=== PATIENT | male | born 1960 | race Caucasian/White ===

== ENCOUNTER → 2016-03-19 | Outpatient (CLI) | payer BC, OTHER ==
[~2016-03-19] VITALS: Ht 172.7 cm; Wt 74.8 kg
[~2016-03-19] MED LIST: BENICAR20 MG PO; CELEBREX 200 M200 MG PO; COZAAR 50 MG TA50 M2 PO; CRESTOR10 MG PO; CYMBALTA60 MG PO; LYRICA 50 MG50 MG PO; MEDROLDOSEPACK PO; MOBIC15 MG PO; NEURONTIN600 MG PO; OXYCODONE-ACET1 EAC2 PO; OXYCODONE-APAP1 EAC6 PO; PERCOCET 10-321 EACH PO; PERCOCET 7.5-31 EACH PO; REMERON15 MG PO; REMERON30 MG PO; TRILEPTAL150 MG PO; ZANAFLEX4 M1 PO
--- NOTE | ~2016-03-19 | HPC ---
[facility] [place] [address] PAIN MANAGEMENT CONSULTATION Name: MICHAEL MILTON Room #: [facility] [id number] Admission: 03/19/16 Attend Phys: Narcisa Quesada MD Discharge: Date of : 60 Report #: [id number] THIS REPORT FOR: //name// CC: [facility] physician/PCP Alex Quesada DATE OF SERVICE: 03/19/2016 FOLLOWUP COMPLAINT: Here for medications and I have been doing pretty good. FOLLOWUP HISTORY: The patient is a 56-year-old gentleman who has been followed in the pain clinic because of chronic cervical pain and radiculopathy. As you recall from his history of somewhat complicated history, he has undergone surgery in the past because of neck instability. Overall, he feels that things are going reasonably well with his current medical regimen. He continues to have some pain and discomfort in his left shoulder, left neck and upper arm. He notes there are some trigger points there that have been helped with injections in the past and may consider an injection in the future. Overall, he is here for his medication renewal. 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 He does not find any encumbrance in his ability to perform his job from use of the opioid medications for pain relief. He would like to have his medications renewed. PHYSICAL EXAMINATION: Blood pressure is 138/84, pulse is 68, respiratory rate 16, room air saturation is 98. The patient rates his pain overall as a 2. It involves his left shoulder, neck, upper arm, described as constant, dull pain and notes some exacerbation of his discomfort when he is exerting himself physically lifting, using his arm, some bending activities. Heat and TENS units treatment can be helpful. IMPRESSION: 1. Cervical radiculopathy status post surgery with pain in the left shoulder, neck, and upper arm treated with opioid therapy. 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 2. Myofascial pain, trigger point in the left shoulder. This area has improved in the past with trigger point injection and the patient may consider an injection at the next visit. RECOMMENDATIONS: We will continue with his current medical regimen of oxycodone 7.5 mg 1 p.o. 5 times per day and meloxicam 15 mg 1 p.o. q. day, gabapentin 600 mg t.i.d. The patient will call us if he has any problems with his medications. [address] [address] PAIN MANAGEMENT CONSULTATION Name: MICHAEL MILTON Room #: REG CLJean ReyesRubénPhucRubén#: [id number] Admission: 03/19/16 Attend Phys: Narcisa Quesada MD Discharge: Date of : 60 Report #: [id number] We would like to thank you for letting us participate in his care. He will continue with Mobic 15 mg 1 p.o. q. day. <ELECTRONICALLY SIGNED> By: Narcisa Quesada MD 04/01/16 1018 [id number] Narcisa Quesada MD /nt
[2016-03-19 12:35] VITALS: BP 138/84
== END | disposition home or self-care (01) ==
LOC: PAIN 07:17
DX: M54.12 Radiculopathy, cervical region (principal); M79.1 Myalgia; G89.29 Other chronic pain; Z98.890 Other specified postprocedural states

== ENCOUNTER → 2016-06-04 | Outpatient (CLI) | payer BC, OTHER ==
[~2016-06-04] VITALS: Ht 172.7 cm; Wt 75.8 kg
--- NOTE | ~2016-06-04 | HPC ---
[facility] [address] [place] [address] PAIN MANAGEMENT CONSULTATION Name: KARINEMICHAEL Remy Room #: REG [facility] Mele#: [id number] Admission: 06/04/16 Attend Phys: Narcisa Quesada MD Discharge: Date of : 60 Report #: [id number] THIS REPORT FOR: //name// CC: Alex Quesada FOLLOWUP COMPLAINT: Here for medication renewal. FOLLOWUP HISTORY: The patient is a 56-year-old gentleman who has been followed in the pain clinic because of cervical radiculopathy. As you recall, he has undergone surgeries for increasing the stability in his neck. Overall, he feels that things are going reasonably well. He rates his pain as a 2/10 at this juncture. He continues to have some pain in the left neck with left shoulder pain as well as left upper arm discomfort. He feels that physical therapy exercises, which involved lifting and use his arm as well as some bending exercise can exacerbate his discomfort. He notes that heat, TENS, and his medications are beneficial. He is taking his medications as prescribed. He has had no problems with the medications. He has had no problems with his judgment or mentation. PHYSICAL EXAMINATION: Blood pressure is 146/82, pulse 78, respiratory rate 16, and room air saturation is about 99%. IMPRESSION: 1. Cervical radiculopathy status post neck stabilization surgeries-improved with his current opioid therapy. No impact on his ability to perform surgeries. 2. Myofascial pain, has trigger points in his left shoulder. This is stable today. RECOMMENDATION: We will continue his current medical regimen of oxycodone 7.5 mg 1 p.o. 5 times per day and Meloxicam 15 mg 1 p.o. daily, gabapentin 600 mg t.i.d. The patient will follow up in the pain clinic if he has any concerns regarding his medications. We would like to thank you for letting us participate in his care. We hope he continues to improve. By: [id number] Narcisa Quesada MD /leoncio
[2016-06-04 10:28] VITALS: BP 146/82
== END | disposition home or self-care (01) ==
LOC: PAIN 07:06
DX: M54.12 Radiculopathy, cervical region (principal); M25.512 Pain in left shoulder; M79.1 Myalgia

== ENCOUNTER → 2016-08-22 | Outpatient (CLI) | payer BC, OTHER ==
[~2016-08-22] VITALS: Ht 172.7 cm; Wt 75.9 kg
[2016-08-22 12:32] VITALS: BP 138/92
== END ==
LOC: PAIN 06:53
DX: M79.1 Myalgia (principal)

== ENCOUNTER → 2016-11-05 | Outpatient (CLI) | payer BC, OTHER ==
[~2016-11-05] VITALS: Ht 172.7 cm; Wt 75.8 kg
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
[2016-11-05 10:51] VITALS: BP 134/96
== END ==
LOC: PAIN 07:06
DX: M79.1 Myalgia (principal); M54.12 Radiculopathy, cervical region; I10 Essential (primary) hypertension

== ENCOUNTER → 2017-01-28 | Outpatient (CLI) | payer BC, OTHER ==
[~2017-01-28] VITALS: Ht 172.7 cm; Wt 75.4 kg
[~2017-01-28] MED LIST changes: +TRAZODONE HCL50 MG PO
--- NOTE | ~2017-01-28 | HPC ---
[facility] [address] [place] [address] PAIN MANAGEMENT CONSULTATION Name: KARINEMICHAEL Room #: REG [facility]LESRub[facility].#: [id number] Admission: 01/28/17 Attend Phys: Narcisa Quesada MD Discharge: Date of : 60 Report #: [id number] THIS REPORT FOR: //name// CC: Alex Quesada DATE OF SERVICE: 01/28/2017 FOLLOWUP COMPLAINT: Things are going a little bit better. FOLLOWUP HISTORY: The patient is a 56-year-old gentleman who has been followed in the pain clinic because of cervical radiculopathy and myofascial pain involving his arms. At this juncture, he is rating his pain as a 2. He continues to have pain in the left neck, left shoulder and in his arms. He notes that the numbness and tingling have improved. His medications continued to be helpful. After the last trigger point injection, he noted a number of days where things were quite improved. At this juncture, he has noted some return of the trigger point in the left trapezius area, would like to undergo another trigger point injection. PHYSICAL EXAMINATION: Blood pressure is 122/77, pulse 74, respiratory rate 16, room air saturations 100, height 5 feet 8 inches, weight 166 pounds, BMI is 25. The patient continues to have pain and discomfort with limited range of motion in his neck, pain and discomfort in the left shoulder, upper arm and notes some low back pain. IMPRESSION: 1. Cervical radiculopathy, status post surgical fusion and instrumentation. 2. Myofascial pain with lumbar pain in the low back area, L1 paraspinous muscle area. 3. Hypertension. RECOMMENDATIONS: We will continue with his current medical regimen of oxycodone 7.5/325 one p.o. q.4-6h. p.r.n. as well as Mobic 7.5 mg 1 daily. He will call us if he has any problems with his medications. We will proceed with a trigger point injection. PROCEDURE NOTE: The patient was placed in the sitting position. The left trapezius area was sterilely prepped with a chlorhexidine solution. A 25-gauge needle was then advanced into the trigger point in the trapezius muscle. This reproduced his discomfort. A total of 10 mL of 0.5% bupivacaine and 40 mg triamcinolone was injected. The patient tolerated the procedure well. There were no complications. His pain level was rated as a 2 at the time of [address] [address] PAIN MANAGEMENT CONSULTATION Name: MICHAEL MILTON Remy [facility] [id number] Admission: 01/28/17 Attend Phys: Narcisa Quesada MD Discharge: Date of : 60 Report #: [id number] discharge. He will follow up in the future as needed. We would like to thank you for letting us participate in his care. We hope he continues to improve. By: [id number] Narcisa Quesada MD /ISAURO
[2017-01-28 11:20] VITALS: BP 122/77
== END | disposition home or self-care (01) ==
LOC: PAIN 07:06
DX: M79.1 Myalgia (principal); M54.5 Low back pain; M54.12 Radiculopathy, cervical region; I10 Essential (primary) hypertension; Z98.890 Other specified postprocedural states; Z79.891 Long term (current) use of opiate analgesic; Z79.899 Other long term (current) drug therapy

== ENCOUNTER → 2017-04-08 | Outpatient (CLI) | payer BC, OTHER ==
[~2017-04-08] VITALS: Ht 172.7 cm; Wt 73.4 kg
[~2017-04-08] MED LIST changes: +IBUPROFEN 200200 M1 PO
--- NOTE | ~2017-04-08 | HPC ---
[facility] [address] [address] PAIN MANAGEMENT CONSULTATION Name: MILTONMICHAEL Room #: REG Jean Shabazz#: [id number] Admission: 04/08/17 Attend Phys: Narcisa Quesada MD Discharge: Date of : 60 Report #: [id number] THIS REPORT FOR: //name// CC: Alex Quesada DATE OF SERVICE: 04/08/2017 FOLLOWUP COMPLAINT: "I am still having some pain and may have to have some surgery in the future." FOLLOWUP HISTORY: The patient is a 57-year-old gentleman, who has been followed in the pain clinic because of chronic cervical radicular pain. As you recall, he has had significant problems with his neck. He has undergone surgeries in this area. Overall, things have gone reasonably well. He still has some pain and discomfort, which continues to be problematic down his arm. Note some numbness and some weakness. Still is able to perform his job without significant problems. He finds that his medications at this juncture are helpful. He has had some myofascial pain in the past which is improved with trigger point injections in the shoulders. At this juncture, he continues to have some pain in the outer aspects of his arm and forearm as well as some into his last two fingers. He has not been taking gabapentin. He is not sure this medication was very, cannot remember how effective this medication was, but feels that another trial of it might be helpful. We described the benefits of Gralise, which is a longer acting medication, similar to gabapentin with less side effects. At this juncture, he feels like he would like to give it a try. ALLERGIES: No known drug allergies. MEDICATIONS: Current medications include: Oxycodone 7.5 mg 1 p.o. p.r.n., Meloxicam 15 mg b.i.d., trazodone 50 mg 1 to 2 tablets at bedtime p.r.n., tizanidine 4 mg b.i.d., Crestor 10 mg, Cozaar 50 mg. PAIN CLINIC ASSESSMENT: 1. History of arthritis in the neck with status post surgeries. 2. Height 5 feet 8 inches, weight 161 pounds, BMI is 24. 3. Pain intensity 05/02. 4. Fall risk. The patient has not fallen in the last 3 months. He is not a fall risk. 5. The patient is not on blood thinners. 6. History of hypertension. The patient is being treated for hypertension. 7. Opioid therapy, greater than 6 weeks. The patient is on an opioid therapy and has signed a contract with the pain clinic. 8. Risk assessment tool. 9. Functional assessment tool. [address] [address] PAIN MANAGEMENT CONSULTATION Name: MILTONMICHAEL Room #: REG CL Mele#: [id number] Admission: 04/08/17 Attend Phys: Narcisa Quesada MD Discharge: Date of : 60 Report #: [id number] 10. Recreational drugs. The patient denies use of recreational drugs. 11. Tobacco: The patient does not smoke. 12. The patient does not use alcohol on a regular basis. PHYSICAL EXAM: GENERAL: The patient is a well-developed white male, appears his stated age. Orientation, the patient is alert and oriented x 3. Affect appears appropriate. HEENT: Atraumatic, normocephalic. Extraocular muscles are intact. Buccal membranes moist. No complaints of sinus problems. NECK: The patient has some limitations of movement in his neck secondary to surgeries. Has a scar in the posterior portion of his neck down to the area of approximately T1. LUNGS: Clear to auscultation. HEART: Regular rate. ABDOMEN: Nontender. IMPRESSION: 1. Cervical radiculopathy, status post surgical fusion with instrumentation. 2. Myofascial pain in the cervical area as well as some lumbar pain in L1 paraspinous muscle area. 3. Hypertension. RECOMMENDATIONS: We discussed treatment options with the patient. We will continue with his current medication of oxycodone 7.5 mg 1 p.o. q.4-6h. p.r.n. He will also continue with Mobic 7.5 mg daily. We will try release. A trial package of this medication has been prescribed. He has been given directions on how to take it. He will call us if he has any problems with his medications. We would like to thank you for letting us participate in his care. We hope he continues to improve. <ELECTRONICALLY SIGNED> By: Narcisa Quesada MD 05/06/17 1429 [id number] Narcisa Quesada MD /ISAURO
[2017-04-08 09:58] VITALS: BP 115/72
== END ==
LOC: PAIN 06:44
DX: M54.12 Radiculopathy, cervical region (principal); M54.5 Low back pain; I10 Essential (primary) hypertension

== ENCOUNTER → 2017-08-28 | Outpatient (CLI) | payer BC, OTHER ==
[~2017-08-28] VITALS: Ht 172.7 cm; Wt 71.7 kg
[~2017-08-28] MED LIST changes: -IBUPROFEN 200200 M1 PO
--- NOTE | ~2017-08-28 | HPC ---
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 As you recall, he has some significant problems with his cervical area. He has undergone surgery. He has been using a number of medications to help control his pain. Things have been going reasonably well. At this juncture, he has noted some worsening of pain and discomfort in his low back area. This is superseded that which he has been experiencing in his neck and in the shoulder. He states that he has been found to have a pars defect in his lower back area. At this juncture, he has no desire to undergo surgery for that problem. Feels his medications are working reasonably well. He did go fishing. He stepped off a rock. The raw was slippery. He did tear part of his quadriceps muscle on the right. He feels that his medications are working reasonably well and would like to continue with those medications today. He has returned for renewal. States that he is not having significant bowel or bladder dysfunction because of medications. He is not having any mental cloudiness. His sensorium is clear, thinking is clear. He is able to perform his job without any interference from use of his pain medications. ALLERGIES: No known drug allergies. CURRENT MEDICATIONS: Oxycodone 7.5 mg 1 p.o. p.r.n., Meloxicam 15 mg b.i.d., trazodone 50 mg 1-2 tablets at bedtime, tizanidine 4 mg b.i.d., Crestor 10 mg, Cozaar 50 mg (medications used in the past have included Neurontin. The patient would like to resume this medication. PAIN CLINIC ASSESSMENT: 1. 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 The patient has some pars defect in his low back at this juncture with increased back pain and discomfort. 2. Height is 5 feet 8 inches, weight 158 pounds, BMI is 24. 3. Vital Signs: Blood pressure 139/87, pulse 78, respiratory rate 14, room air saturation 98%. 4. Pain intensity 05/02. 5. Fall risk. The patient has not fallen in the last 3 months. He did slip on a wet slippery rock when going fishing recently. 6. Blood thinner. The patient is on [place] [address] PAIN MANAGEMENT CONSULTATION Name: KARINEMICHAEL Room #: REG [facility]#: [id number] Admission: 08/28/17 Attend Phys: Narcisa Quesada MD Discharge: Date of : 60 Report #: [id number] 7. History of hypertension. The patient is being treated for hypertension. 8. Opioid therapy greater than 6 weeks. The patient is receiving opioid medication from one source, the pain clinic. 9. Risk assessment tool, low risk without use of opioid medication. 10. Functional assessment tool. 11. Recreational drug use. The patient denies use of recreational drugs. 12. Tobacco: The patient has never smoked. 13. Alcohol. The patient drinks alcoholic beverages occasionally. PHYSICAL EXAMINATION: GENERAL: The patient is well-developed, well-nourished white male, appears his stated age. He is alert and oriented x 3. His affect is appropriate. Speech is fluent. HEENT: Normocephalic, atraumatic. Extraocular eye muscles intact. Sclerae nonicteric. Mucous membranes are moist. NECK: With limitation secondary to surgeries. Well-healed scars in the anterior and posterior portion of his neck. LUNGS: Clear to auscultation. HEART: Regular rate. S1, S2. ABDOMEN: Nontender. EXTREMITIES: Lower extremity, the patient has pain and discomfort in his back. Upper muscle strength is judged to be 5/5 for the major muscle groups in the upper extremity. Lower muscle strength is judged to be 5/5 for the major muscle groups in the lower extremity. The patient has a significant bruise/tear in the area of the right quadriceps muscle. It is approximately an 8 inches along with color changes consistent with an old bruise underneath the skin. IMPRESSION: 1. Cervical radiculopathy, status post fusion with instrumentation. 2. 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 3. Myofascial pain in the cervical area as well. 4. Hypertension. RECOMMENDATIONS: We discussed treatment options with the patient. He felt that the use of gabapentin may have been more effective than he thought. At this juncture, he would like to resume use of gabapentin to help with his medication. He was given Gralise. He did not feel that the slow release medication of gabapentin was significantly helpful. He would like to continue with his current medications. He may consider treatment of injections or other modalities to help with the pars defect in his lower back in the future. A script for all of his medications have been released. He will follow up in the [facility] [address] [place] [address] PAIN MANAGEMENT CONSULTATION Name: MICHAEL MILTON Room #: REG NINO Shabazz#: [id number] Admission: 08/28/17 Attend Phys: Narcisa Quesada MD Discharge: Date of : 60 Report #: [id number] future as needed. We would like to thank you for letting us participate in his care. We hope he continues to improve. By: [id number] Narcisa Quesada MD /ISAURO
[2017-08-28 10:53] VITALS: BP 139/87
== END ==
LOC: PAIN 06:56
DX: M54.12 Radiculopathy, cervical region (principal); I10 Essential (primary) hypertension

== ENCOUNTER → 2018-01-13 | Outpatient (CLI) | payer BC, OTHER ==
[~2018-01-13] VITALS: Ht 172.7 cm; Wt 73.9 kg
[~2018-01-13] MED LIST changes: +IBUPROFEN 200200 M1 PO
[2018-01-13 12:35] VITALS: BP 152/101
== END ==
LOC: PAIN 06:37
DX: M54.2 Cervicalgia (principal); M25.512 Pain in left shoulder; M54.5 Low back pain; M79.642 Pain in left hand; M79.641 Pain in right hand; G89.29 Other chronic pain; Z79.891 Long term (current) use of opiate analgesic

== ENCOUNTER → 2018-03-19 | Outpatient (CLI) | payer BC, OTHER ==
[~2018-03-19] VITALS: Ht 172.7 cm; Wt 75.1 kg
--- NOTE | ~2018-03-19 | HPC ---
[facility] [place] [address] PAIN MANAGEMENT CONSULTATION Name: MILTONMICHAEL Room #: REG [facility] Mele#: [id number] Admission: 03/19/18 Attend Phys: Narcisa Quesada MD Discharge: Date of : 60 Report #: [id number] THIS REPORT FOR: //name// CC: Alex Quesada DATE OF SERVICE: 03/19/2018 CHIEF COMPLAINT: "I got some improvement in the back after the last injection, I would like to try another one today." FOLLOWUP HISTORY: The patient is a 58-year-old gentleman who has been followed in the pain clinic because of chronic pain. As you recall, he has ____ areas at this juncture. Has a history of cervical pain with some radicular components. Also, has some pain and discomfort in his low back. He has undergone an epidural steroid injection because of the pain, which has been problematic in the low back area, which radiates and involves both legs, right side more problematic today. He was considering an epidural steroid injection right at [facility]. He got trouble news. His father had fallen in [place]. He had to fly down to [place]. Overall, things were got reasonably well with his father. He has returned today to the pain clinic. He would like to undergo an epidural steroid injection to help decrease the pain and discomfort, he has been experiencing. Finds his medications continued to be helpful. ALLERGIES: No known drug allergies. CURRENT MEDICATIONS: Oxycodone 7.5 mg 1 p.o. p.r.n., Meloxicam 15 mg b.i.d., trazodone 50 mg 1 or 2 tablets at bedtime, tizanidine 4 mg b.i.d., Crestor 10 mg, Cozaar 50 mg, and gabapentin 600 mg at bedtime. PAIN CLINIC ASSESSMENT/PQRS: 1. History of osteoarthritis involving his neck. He has some arthritic changes in his low back as well. The patient is not being treated for rheumatoid arthritis. 2. Height 5 feet 8 inches, weight 165 pounds, BMI is 25.2. 3. Vital signs: Blood pressure is 131/81, pulse 89, respiratory rate 16, room air saturation is 100%. 4. Pain intensity 06/02. 5. Fall history. The patient has not fallen in the last 3 months. 6. Blood thinner. The patient is not on a blood thinning medication. 7. Hypertension. The patient is being treated for hypertension. 8. Opioid greater than 6 weeks. The patient receives medications from 1 source the pain clinic. 9. Risk assessment tool, low for opioid use. 10. [place] [address] PAIN MANAGEMENT CONSULTATION Name: MICHAEL MILTON Room #: REG CLJean Shabazz#: [id number] Admission: 03/19/18 Attend Phys: Narcisa Quesada MD Discharge: Date of : 60 Report #: [id number] 11. Recreational drug use. The patient denies use of recreational drugs. 12. Tobacco: The patient has never smoked. 13. Alcohol: The patient denies frequent use of alcoholic beverages. PHYSICAL EXAMINATION: GENERAL: The patient is a well-developed, well-nourished white male. Appears his stated age. He is alert and oriented x 3. His affect is appropriate. Speech is fluent. HEENT: Normocephalic, atraumatic. Extraocular eye muscles intact. Sclerae nonicteric. Mucous membranes are moist. HEART: The patient's heart rate is regular. ABDOMEN: Nontender. EXTREMITIES: Upper extremity muscle strength is judged to be 5-/5 for the major muscle groups in the upper extremity. Has pain and discomfort in the lower portion of his back. Muscle strength 5/5 for the major muscle groups in the lower extremity. The patient has pain that is radiating down into the lower portion of his back in the L4-L5 dermatomal distribution, more problematic on the right than the left. IMPRESSION: 1. Lumbar radiculopathy, L5-S1, primarily on the right. History of cervical radiculopathy status post anterior as well as posterior fusion with instrumentation. Decreased range of motion in his neck. 2. 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 3. Myofascial pain in the cervical area. 4. Hypertension. 5. Stress secondary to the patient's fall -- improve. The patient is doing better. RECOMMENDATIONS: We discussed treatment options with the patient. Risks and benefits of an epidural steroid injection were again reviewed. Possible complications, which could include but are not limited to infection, worsening pain, no improvement in the pain, nerve trauma, spinal headache, paralysis are discussed. The patient elects to proceed. PROCEDURE NOTE: The patient was taken to the procedure area. He was assisted in getting on the examination table. His back was sterilely prepped with a Betadine solution. A pillow was placed under his abdomen to bolster and improve positioning. Fluoroscopy using anterior, posterior as well as lateral viewing were implemented. A 17-gauge Tuohy with loss of resistance technique was used to gain access to the epidural space at the L4-L5 interspace. A right paramedian approach was undertaken. After appropriate placement 0.25% bupivacaine was infiltrated in this area. Aspiration was negative. A total of 80 mg Depo-Medrol, 40 mg triamcinolone and 2 mL of 0.25% bupivacaine was injected. The patient tolerated the procedure well. He remained in the pain [facility] [address] [place] [address] PAIN MANAGEMENT CONSULTATION Name: MICHAEL MILTON Room #: REG [facility].#: [id number] Admission: 03/19/18 Attend Phys: Narcisa Quesada MD Discharge: Date of : 60 Report #: [id number] clinic for an appropriate amount of time. He will follow up in the future as needed. A script for his medications of tizanidine, gabapentin, and oxycodone 7.5 mg were written. He will call us if he has any concerns. By: [id number] [id number] Narcisa Quesada MD /ISAURO
[2018-03-19 09:29] VITALS: BP 131/81
--- NOTE | 2018-03-19 09:42 | NUR ---
Pain Clinic Assessment: 1. History of Osteoarthritis: JOINTS History of Rheumatoid Arthritis: Not Applicable 2. Height: 5 ft. 8 in. 172.7 cm. Weight: 165.6 lb. oz. 75.116 kg. Patient's BMI: 25.2 3. Vital Signs: BP: 131/81 Pulse: 89 Resp: 16 Temp: 02 Sat: 100 ECG Mon: 4. Pain Intensity: 4 5. Fall Risk: Dizziness: N Needs help standing or walking: N Fallen in the last 3 months: N Fall risk comments: 6. Patient on Blood Thinner: None 7. History of Hypertension: Y 8. Opioid Therapy greater than 6 weeks: Y Opiate Contract Signed: 08/16/15 9. Risk Assessment Tool Provided: 1 LOW RISK 10. Functional Assessment Tool: 11. Recreational Drug Use: Never Drug Type: Tobacco Use: Never Smoker Tobacco Type: Amount or Packs/day: How Many Years: Alcohol Use: No Frequency: Quant:
== END | disposition home or self-care (01) ==
LOC: PAIN 03-18 10:14
DX: M54.16 Radiculopathy, lumbar region (principal); G89.29 Other chronic pain; M43.06 Spondylolysis, lumbar region; M54.12 Radiculopathy, cervical region; M79.18 Myalgia, other site; I10 Essential (primary) hypertension; Z79.899 Other long term (current) drug therapy; Z79.891 Long term (current) use of opiate analgesic; Z98.890 Other specified postprocedural states

== ENCOUNTER → 2018-05-28 | Outpatient (CLI) | payer BC, OTHER ==
[~2018-05-28] VITALS: Ht 172.7 cm; Wt 75.8 kg
--- NOTE | ~2018-05-28 | HPC ---
[facility] [address] [address] PAIN MANAGEMENT CONSULTATION Name: KARINEMICHAEL Room #: REG NINO Shabazz#: [id number] Admission: 05/28/18 ������������������ Attend Phys: Narcisa Quesada MD Discharge: ������������������ Date of : 60 Report #: [id number] THIS REPORT FOR: //name// CC: Alex Quesada DATE OF SERVICE: 05/28/2018 CHIEF COMPLAINT: "I am doing okay. They told that my may have the beginnings of Parkinson's. Might be secondary to her medications." HISTORY: The patient is a 58-year-old gentleman who has been followed in the pain clinic. As you recall, he has a significant history for chronic pain. Has pain in his upper extremity. He has had anterior as well as posterior surgical interventions. He has been having some pain and discomfort in the lower portion of his back with pain that is radiating down to his leg. He has undergone epidural steroid injection at the low back area and found that to be beneficial. He may consider another epidural injection in the near future. Overall, things are going as well as could be expected. He feels his medications are working reasonably well. He has returned today with a desire to have his medications renewed. ALLERGIES: No known drug allergies. CURRENT MEDICATIONS: Oxycodone 7.5 mg 1 p.o. p.r.n., Meloxicam 15 mg b.i.d., trazodone 50 mg 1 or 2 tablets at bedtime, tizanidine 4 mg b.i.d., Crestor 10 mg, Cozaar 50 mg, gabapentin 600 mg at bedtime. PAIN CLINIC ASSESSMENT AND PQRS: 1. History of osteoarthritis. The patient has arthritic changes in his neck and has some arthritic changes in his low back as well. He has not been treated for rheumatoid arthritis. 2. Height 5 feet 8 inches, weight 167 pounds, BMI is 25. 3. Vital signs: Blood pressure 136/88, pulse 80, respiratory rate 16, room air saturation 100%. Pain intensity 06/02. 4. Fall risk. The patient has not fallen in the last 3 months. 5. Blood thinner. The patient is not on a blood thinning medication. 6. Hypertension. The patient is being treated for hypertension. 7. Opioid greater than 6 weeks. The patient refuses medication from one source, pain clinic. 8. Risk assessment tool, low for opioid use. 9. Functional assessment tool. 10. Recreational drug use. The patient denies use of recreational drugs. 11. Tobacco: The patient has never smoked. 12. Alcohol: The patient denies use of alcoholic beverages. [address] [address] PAIN MANAGEMENT CONSULTATION Name: KARINEMICHAEL Room #: REG CL Frandy.#: [id number] Admission: 05/28/18 ������������������ Attend Phys: Narcisa Quesada MD Discharge: ������������������ Date of : 60 Report #: [id number] PHYSICAL EXAMINATION: GENERAL: The patient is a well-developed, well-nourished, white male. Appears his stated age. He is alert and oriented x 3. His affect is appropriate. Speech is fluent. HEENT: Normocephalic, atraumatic. Extraocular eye muscles intact. Sclerae nonicteric. Mucous membranes are moist. NECK: Without adenopathy or JVD. HEART: Regular rate. ABDOMEN: Nontender. Bowel sounds present. EXTREMITIES: Upper extremity muscle strength is judged to be 5-/5 for the major muscle groups in the upper extremity. Has pain and discomfort in his lower back. Muscle strength to the lower extremities judged to be 5-/5 for the major muscle groups in lower extremity. Has some pain and discomfort in the L4-L5 dermatomal distribution. IMPRESSION: 1. History of lumbar radiculopathy, L4-L5/S1 on the right. 2. History of cervical radiculopathy, status post anterior as well as posterior fusion with instrumentation with decreased range of motion. 3. 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 4. Myofascial pain in the cervical area. 5. Hypertension. 6. Stress secondary to the findings of possible Parkinson development in his . RECOMMENDATIONS: We discussed treatment options with the patient. At this juncture, we discussed treatment options with the patient at this time. The possible benefits of another lumbar epidural steroid injection were discussed. The patient will consider the use of another epidural steroid injection at his next visit. He is having pain and discomfort in the L4-L5 dermatomal distribution. We have rewritten his medications. A script for his medications of oxycodone 7.5 mg 1 p.o. 4-6 hours p.r.n., 150 tablets, gabapentin 600 mg 1 p.o. at bedtime of 630 tablets, Meloxicam 15 mg 1 p.o. daily and Zanaflex 4 mg tablets 1 p.o. b.i.d. The patient will call if he has any concerns. We would like to thank you for letting us participate in his care. We hope he continues to improve. ��������������������������������������������� ���������������������������������������� By: ��������������������������������������������� [id number] Narcisa Quesada MD /PMT
[2018-05-28 09:21] VITALS: BP 136/88
--- NOTE | 2018-05-28 09:42 | NUR ---
Pain Clinic Assessment: 1. History of Osteoarthritis: JOINTS History of Rheumatoid Arthritis: Not Applicable 2. Height: 5 ft. 8 in. 172.7 cm. Weight: 167.0 lb. oz. 75.751 kg. Patient's BMI: 25.4 3. Vital Signs: BP: 136/88 Pulse: 80 Resp: 16 Temp: 02 Sat: 100 ECG Mon: 4. Pain Intensity: 4 5. Fall Risk: Dizziness: N Needs help standing or walking: N Fallen in the last 3 months: N Fall risk comments: 6. Patient on Blood Thinner: None 7. History of Hypertension: Y 8. Opioid Therapy greater than 6 weeks: Y Opiate Contract Signed: 08/16/15 9. Risk Assessment Tool Provided: 1 LOW RISK 10. Functional Assessment Tool: 11. Recreational Drug Use: Never Drug Type: Tobacco Use: Never Smoker Tobacco Type: Amount or Packs/day: How Many Years: Alcohol Use: No Frequency: Quant:
== END ==
LOC: PAIN 06:55
DX: M54.17 Radiculopathy, lumbosacral region (principal); M54.12 Radiculopathy, cervical region; M79.18 Myalgia, other site; I10 Essential (primary) hypertension; Z79.899 Other long term (current) drug therapy

== ENCOUNTER → 2018-08-03 | Outpatient (CLI) | payer BC, OTHER ==
[~2018-08-03] VITALS: Ht 172.7 cm; Wt 74.6 kg
[2018-08-03 11:09] VITALS: BP 130/83
--- NOTE | 2018-08-03 11:18 | NUR ---
Pain Clinic Assessment: 1. History of Osteoarthritis: JOINTS History of Rheumatoid Arthritis: Not Applicable 2. Height: 5 ft. 8 in. 172.7 cm. Weight: 164.4 lb. oz. 74.571 kg. Patient's BMI: 25.0 3. Vital Signs: BP: 130/83 Pulse: 80 Resp: 16 Temp: 02 Sat: 100 ECG Mon: 4. Pain Intensity: 4 5. Fall Risk: Dizziness: N Needs help standing or walking: N Fallen in the last 3 months: N Fall risk comments: 6. Patient on Blood Thinner: None 7. History of Hypertension: Y 8. Opioid Therapy greater than 6 weeks: Y Opiate Contract Signed: 08/16/15 9. Risk Assessment Tool Provided: 1 LOW RISK 10. Functional Assessment Tool: 27 11. Recreational Drug Use: Never Drug Type: Tobacco Use: Never Smoker Tobacco Type: Amount or Packs/day: How Many Years: Alcohol Use: No Frequency: Quant:
--- NOTE | 2018-08-04 08:20 | HPC ---
[facility] [address] [address] PAIN MANAGEMENT CONSULTATION Name: MILTONMICHAEL Room #: REG [facility] Frandy.#: [id number] Admission: 08/03/18 ������������������ Attend Phys: Amber Montgomery Discharge: ������������������ Date of : 60 Report #: [id number] THIS REPORT FOR: //name// CC: Amber Montgomery Alex Lomeliberg DATE OF SERVICE: 08/03/2018 CHIEF COMPLAINT: Low back pain and neck pain. HISTORY OF PRESENT ILLNESS: This is a very pleasant 58-year-old gentleman who returns to the pain clinic today for refill of his medications that he uses to treat his ongoing neck and low back pain. He tells me his pain score is 4/10 in his lower back that is radiating down his right leg, posteriorly to his foot. Occasionally, his foot falls asleep he tells me. The pain is worse with bending, standing and walking, but the medications and his TENS unit are helpful. He did have a lumbar epidural steroid injection by Dr. Quesada in February. He tells me that it was not as effective as others have been in the past and lasting quite as long as he is used to, but he was wondering if he could have another one here soon before he goes on vacation. ALLERGIES: No known drug allergies. CURRENT LIST OF MEDICATIONS: Tizanidine 4 mg twice a day, oxycodone 7.5/325 p.r.n., meloxicam 15 mg daily, gabapentin 600 mg at bedtime, ibuprofen p.r.n., trazodone 50 mg at bedtime, Crestor 20 mg daily and Cozaar 50 mg daily. PQRS: 1. He has osteoarthritic changes in his neck and some in his lumbar spine. He denies any rheumatoid arthritis. 2. Height is 5 feet 8 inches, weight is 164, BMI is 25. 3. Vital signs: Blood pressure 130/83, pulse is 80, respirations 16, oxygen sat is 100. 4. Pain score is 4/10. 5. Fall risk: Denies dizziness. Does not need help walking or standing and has not fallen in the last 3 months. 6. The patient is not on any blood thinners. He does take medicine for hypertension. 7. Opioid therapy is greater than 6 weeks; therefore, an opiate signed contract is on the chart. 8. Risk assessment tool is low. Functional assessment is . 9. Recreational drug use, he denies. He is not a smoker and does not drink alcohol. We did check the prescription monitoring system. The patient is filling appropriately for his medications. Does tell me he safeguards his medicines at [address] [address] PAIN MANAGEMENT CONSULTATION Name: MILTONMICHAEL Room #: REG Jean Wise.#: [id number] Admission: 08/03/18 ������������������ Attend Phys: Amber Montgomery Discharge: ������������������ Date of : 60 Report #: [id number] all times. PHYSICAL EXAMINATION: GENERAL: This is a well-developed, well-nourished white gentleman who appears his stated age placing his pain score today at 4/10. His affect is appropriate and speech is fluent. HEENT: Normocephalic, atraumatic. Extraocular eye muscles are intact. Mucous membranes are moist. NECK: Without JVD or adenopathy. Does not complain of tenderness in his neck today. EXTREMITIES: Upper extremity strength judged to be 5/5 for major muscle groups in his upper and lower extremities. Pain is in his lumbar spine following an L4-L5, L5-S1 dermatomal distribution down his right leg, into his foot with numbness and tingling present in his right foot. IMPRESSION: 1. History of lumbar radiculopathy at L4-L5 and L5-S1 on the right. History of cervical radiculopathy, status post anterior and posterior fusion with instrumentation. 2. Pars defect in the lumbar portion of his spine with increased pain. 3. Myofascial pain in the cervical area at times. 4. Hypertension. We reviewed the fact that opiate medications are being used to provide analgesia adequate to support activities of daily living, not attempting to achieve a specific pain score on the 0-10 Visual Analog Scale. The current opiate medications are providing sufficient analgesia to allow the patient to participate in activities of daily living. The patient is not exhibiting any aberrant behavior suggestive of drug diversion. The patient is not having any adverse reactions to medications. The patient is not suffering from daytime somnolence or mental acuity changes. The patient is managing opiate-induced constipation with appropriate [id number] agents and dietary considerations. The patient was counseled on concern for caution with operating a motor vehicle while using opiate medications. A physical exam was performed and the patient's functional status was evaluated. All patients with back pain were advised against the bed rest greater than 4 days and were advised to return to normal activities. Pain score assessment was noted and the treatment plan was reviewed with the patient. All current medications, both prescribed and OTC were reviewed and reconciled on the electronic medical record. Tobacco screening was accomplished and smoking cessation was advised when indicated. BMI was noted and diet/exercise modification was recommended for all patients following outside normal parameters. I reviewed with the patient today their responsibilities to [address] [address] PAIN MANAGEMENT CONSULTATION Name: MICHAEL MILTON Room #: REG [facility]#: [id number] Admission: 08/03/18 ������������������ Attend Phys: Amber Montgomery Discharge: ������������������ Date of : 60 Report #: [id number] prescription medications, reviewed their responsibility to utilize medications only as prescribed by the physician. They are to seek and receive pain medications only from 1 physician group ( [facility]). They are to use 1 pharmacy and keep the clinic informed if they change pharmacies. Their responsibilities include making followup visits in a timely fashion and to avoid abrupt discontinuation of medication usage. Their responsibilities further include bringing their medications (bottles from the pharmacy with residual pills) to the visit for possible confirmation of pill counts and the patient understands it is their responsibility to submit to random drug screens to ensure both that the medications prescribed are present, and that no other controlled substances are present. All prescriptions provided today were generated electronically. PLAN: We discussed treatment options with the patient today. The patient would like his medication refilled. Script was given today for: 1. Oxycodone 7.5/325, #150. This places the patient at morphine mme of 56 in the guidelines of the CDC guidelines, 3 months of medication given for this patient. 2. Gabapentin 600 mg #30 with 5 additional refills. The patient takes this only at bedtime. He is unable to tolerate during the day with too much sleepiness. 3. No scripts needed for meloxicam or tizanidine today. We discussed treatment options with another lumbar epidural steroid injection. He has had good benefit from this in the past, though the last one did not quite last as long as normal. He said he was very active right after that. He tells me that this time he will not do such strenuous activity and with the medication work little better we will have him set up for a lumbar epidural steroid injection by Dr. Quesada for the next 2 weeks. The patient was seen in collaboration today with Dr. Michael Jones. ��������������������������������������������� <ELECTRONICALLY SIGNED> ���������������������������������������� By: Amber Montgomery ��������������������������������������������� 08/04/18 0820 [id number] Amber Montgomery /nt
== END ==
LOC: PAIN 06:42
DX: M54.5 Low back pain (principal); M54.2 Cervicalgia; I10 Essential (primary) hypertension; M19.90 Unspecified osteoarthritis, unspecified site; Z79.891 Long term (current) use of opiate analgesic

== ENCOUNTER → 2018-09-01 | Outpatient (CLI) | payer BC, OTHER ==
[~2018-09-01] VITALS: Ht 172.7 cm; Wt 75.8 kg
--- NOTE | ~2018-09-01 | HPC ---
[facility] [place] [place] [address] PAIN MANAGEMENT CONSULTATION Name: KARINEMICHAEL Room #: REG [facility] Mele#: [id number] Admission: 09/01/18 ������������������ Attend Phys: Narcisa Quesada MD Discharge: ������������������ Date of : 60 Report #: [id number] THIS REPORT FOR: //name// CC: Alex Quesada DATE OF SERVICE: 09/01/2018 CHIEF COMPLAINT: "I have pain down in the back of my leg and would like to undergo an epidural steroid injection." HISTORY: The patient is a 58-year-old gentleman who has been followed in the pain clinic. He has had problems from a cervical nature. As you may recall, he has had posterior and anterior interventions. At this point, the pain, which is most problematic is that in his lower back. He is having pain that is radiating down into his leg. He has undergone epidural steroid injections in the past and gleaned benefit from them. Notes that his pain is more problematic on the right side than left today. Has had aching spasms sharp, dull, discomfort in the lower portion of his back. Both buttocks are problematic, but the right is most problematic. Notes his pain is exacerbated when he is bending, standing, walking, lifting. Feels his medications continue to be helpful. Uses heat as well as a TENS unit. ALLERGIES: No known drug allergies. CURRENT MEDICATIONS: Oxycodone 7.5 mg 1 p.o. p.r.n., Meloxicam 15 mg 1 p.o. b.i.d., trazodone 50 mg 1 to 2 tablets at bedtime, tizanidine 4 mg b.i.d., Crestor 10 mg, Cozaar 50 mg, gabapentin 600 mg at bedtime. PAIN CLINIC ASSESSMENT AND PQRS: 1. History of osteoarthritis. The patient has osteoarthritic changes in his neck as well as in the low back area. He has not been treated for rheumatoid arthritis. 2. Height 5 feet 8 inches, weight 167 pounds, BMI is 25.4. 3. VITAL SIGNS: Blood pressure 125/74, pulse 69, respiratory rate 14, room air saturation 98%. 4. Pain intensity 3-10. 5. Fall history: The patient has not fallen in the last 3 months. 6. Blood thinner. The patient is not on a blood thinning medication. 7. Hypertension. The patient is being treated for hypertension. 8. Opioids greater than 6 weeks. The patient receives his medication through the pain clinic. 9. Risk assessment tool: Low for opioid risk. 10. Functional assessment tool . 11. Recreational drug use. The patient denies use of recreational drugs. 12. Tobacco: The patient denies use of tobacco. [address] [address] PAIN MANAGEMENT CONSULTATION Name: MICHAEL MILTON Remy Room #: REG CLI [facility]#: [id number] Admission: 09/01/18 ������������������ Attend Phys: Narcisa Quesada MD Discharge: ������������������ Date of : 60 Report #: [id number] 13. Alcohol: The patient denies use of alcoholic beverages on a regular basis. PHYSICAL EXAMINATION: GENERAL: The patient is a well-developed, well-nourished white male. Appears his stated age. He is alert and oriented x 3. His affect is appropriate. Speech is fluent. HEENT: Normocephalic, atraumatic. Extraocular eye muscles intact. Sclerae nonicteric. Mucous membranes are moist. NECK: Without adenopathy or JVD. The patient has well-healed scars in the neck area. HEART: Regular rate. ABDOMEN: Nontender. Bowel sounds present. EXTREMITIES: Upper extremity muscle strength is judged to be 5-/5 for the major muscle groups in the upper extremity. Has some pain and discomfort in his lower back. Notes some weakness and perception of weakness in the lower extremity on the right leg. There is numbness and tingling sensation in the L5-S1 dermatomal distribution. IMPRESSION: 1. History of lumbar radiculopathy, L4-L5 and L5-S1 on the right. 2. History of cervical radiculopathy status post anterior and posterior fusion with instrumentation. 3. 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 4. Myofascial pain in the cervical area. 5. Hypertension. RECOMMENDATIONS: We discussed treatment options with the patient. Risks and benefits of an epidural steroid injection were discussed. Possible complications of the procedure, which could include but are not limited to infection, worsening of pain, no improvement in pain, nerve damage, spinal headache were reviewed. The patient elects to proceed. PROCEDURE NOTE: The patient was taken to the procedure area. He was then assisted in getting on the examination table. His back was sterilely prepped with a Betadine solution at the L5/L4 area. Fluoroscopy using anterior, posterior as well as lateral viewing were implemented. The patient's back was sterilely prepped and a 25-gauge needle was then advanced at the L5-S1 in the midline approach with a right paramedian direction. A total of 80 mg of Depo-Medrol, 40 mg of triamcinolone and 2 mL of 0.25% bupivacaine was injected. The patient tolerated the procedure well. There were no complications. He remained in the pain clinic for an appropriate amount of time. [address] [address] PAIN MANAGEMENT CONSULTATION Name: MICHAEL MILTON Room #: REG [facility]azz#: [id number] Admission: 09/01/18 ������������������ Attend Phys: Narcisa Quesada MD Discharge: ������������������ Date of : 60 Report #: [id number] We would like to thank you for letting us participate in his care. We hope he continues to improve. ��������������������������������������������� ���������������������������������������� By: ��������������������������������������������� [id number] [id number] Narcisa Quesada MD /PMT
[2018-09-01 12:59] VITALS: BP 125/74
--- NOTE | 2018-09-01 13:00 | NUR ---
Pain Clinic Assessment: 1. History of Osteoarthritis: JOINTS History of Rheumatoid Arthritis: Not Applicable 2. Height: 5 ft. 8 in. 172.7 cm. Weight: 167.0 lb. oz. 75.751 kg. Patient's BMI: 25.4 3. Vital Signs: BP: 125/74 Pulse: 69 Resp: 14 Temp: 02 Sat: 98 ECG Mon: 4. Pain Intensity: 3-4 5. Fall Risk: Dizziness: N Needs help standing or walking: N Fallen in the last 3 months: N Fall risk comments: 6. Patient on Blood Thinner: None 7. History of Hypertension: Y 8. Opioid Therapy greater than 6 weeks: Y Opiate Contract Signed: 08/16/15 9. Risk Assessment Tool Provided: 1 LOW RISK 10. Functional Assessment Tool: 27 11. Recreational Drug Use: Never Drug Type: Tobacco Use: Never Smoker Tobacco Type: Amount or Packs/day: How Many Years: Alcohol Use: No Frequency: Quant:
== END | disposition home or self-care (01) ==
LOC: PAIN 07:04
DX: M54.16 Radiculopathy, lumbar region (principal); Z79.899 Other long term (current) drug therapy

== ENCOUNTER → 2018-10-13 | Outpatient (CLI) | payer BC, OTHER ==
[~2018-10-13] VITALS: Ht 172.7 cm; Wt 75.7 kg
--- NOTE | ~2018-10-13 | HPC ---
[facility] [address] [place] [address] PAIN MANAGEMENT CONSULTATION Name: KARINEMICHAEL Remy Room #: REG [facility] Mele#: [id number] Admission: 10/13/18 Attend Phys: Narcisa Quesada MD Discharge: Date of : 60 Report #: [id number] THIS REPORT FOR: //name// CC: Alex Quesada DATE OF SERVICE: 10/13/2018 CHIEF COMPLAINT: Here for medications. HISTORY: The patient is a 58-year-old gentleman who has been followed in the pain clinic because of chronic pain involving his neck as well as had some back problems. He has undergone epidural steroid injections and gleaned benefits with the back pain. Continues to have pain and discomfort in the upper neck area secondary to cervical radicular problems. He has returned today for renewal of his medications. Overall, things are going reasonably well. He has had some problems with his mother. She has had some health issues. She has come into [place] to undergo treatment to be closer to Michael. ALLERGIES: No known drug allergies. CURRENT MEDICATIONS: Oxycodone 7.5 mg 1 p.o. p.r.n., meloxicam 15 mg 1 p.o. b.i.d., trazodone 50 mg 1-2 tablets at bedtime, tizanidine 4 mg b.i.d., Crestor 10 mg, Cozaar 50 mg, gabapentin 600 mg at bedtime. PAIN CLINIC AND PQRS: 1. History of osteoarthritis. The patient has some osteoarthritic changes in his neck as well as in his low back area. He is not being treated for rheumatoid arthritis. 2. Height 5 feet 8 inches, weight 166 pounds, BMI is 25.4. 3. Vital Signs: Blood pressure 117/75, pulse 75, respiratory rate 14, room air saturation 100%. 4. Pain intensity 10. 5. Fall history: The patient has not fallen in the last 3 months. 6. Blood thinner. The patient is not on a blood thinning medication. 7. Hypertension. The patient is being treated for hypertension. 8. Opioid therapy greater than 6 weeks. The patient receives medication from one source the pain clinic. 9. Risk assessment tool, low for opioid risk. 10. Functional assessment tool . 11. Recreational drug use. The patient denies. 12. Tobacco: The patient has never smoked. 13. Alcohol. The patient denies frequent use of alcoholic beverages. PHYSICAL EXAMINATION: GENERAL: The patient is a well-developed, well-nourished [place] [address] PAIN MANAGEMENT CONSULTATION Name: MICHAEL MILTON [id number] Admission: 10/13/18 Attend Phys: Narcisa Quesada MD Discharge: Date of : 60 Report #: [id number] his stated age. He is alert and oriented x 3. His affect is appropriate. Speech is fluent. HEENT: Normocephalic. Extraocular eye muscles intact. NECK: Without adenopathy or JVD. Some well-healed scar in the anterior portion with some decreased range of motion. HEART: Regular rate. ABDOMEN: Nontender. Bowel sounds present. EXTREMITIES: Upper extremity muscle strength judged to be 5-/5 for the major muscle groups in the upper extremity. The patient without significant scoliosis, kyphosis or lordosis. Lower extremity muscle strength judged to be 5/5 for the major muscle groups of the lower extremity. IMPRESSION: 1. History of lumbar radicular pain, L4-L5 and L5-S1 on the right. 2. History of cervical radiculopathy, status post anterior as well as posterior fusion with instrumentation. 3. 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 4. Myofascial pain in the cervical area. 5. Hypertension. RECOMMENDATIONS: We discussed treatment options with the patient. At this juncture, he feels that things are going reasonably well. He has noted some good benefit from the last epidural steroid injection. At this juncture, he will continue with the thought that he may undergo an injection in the future. Overall, he will continue with his medication as prescribed. He does not have any problems with the medications. He is able to think clearly. There is no clouding of his sensorium. 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 We would like to thank you for letting us participate in his care. We hope he continues to improve. By: [id number] Narcisa Quesada MD /ISAURO
[2018-10-13 09:53] VITALS: BP 117/75
--- NOTE | 2018-10-13 10:05 | NUR ---
Pain Clinic Assessment: 1. History of Osteoarthritis: JOINTS History of Rheumatoid Arthritis: Not Applicable 2. Height: 5 ft. 8 in. 172.7 cm. Weight: 166.8 lb. oz. 75.660 kg. Patient's BMI: 25.4 3. Vital Signs: BP: 117/75 Pulse: 75 Resp: 14 Temp: 02 Sat: 100 ECG Mon: 4. Pain Intensity: 3 5. Fall Risk: Dizziness: N Needs help standing or walking: N Fallen in the last 3 months: N Fall risk comments: 6. Patient on Blood Thinner: None 7. History of Hypertension: Y 8. Opioid Therapy greater than 6 weeks: Y Opiate Contract Signed: 08/16/15 9. Risk Assessment Tool Provided: 1 LOW RISK 10. Functional Assessment Tool: 27 11. Recreational Drug Use: Never Drug Type: Tobacco Use: Never Smoker Tobacco Type: Amount or Packs/day: How Many Years: Alcohol Use: No Frequency: Quant:
== END ==
LOC: PAIN 06:42
DX: M54.12 Radiculopathy, cervical region (principal); M54.5 Low back pain; I10 Essential (primary) hypertension; M79.18 Myalgia, other site

== ENCOUNTER → 2018-12-22 | Outpatient (CLI) | payer BC, OTHER ==
[~2018-12-22] VITALS: Ht 172.7 cm; Wt 77.6 kg
[~2018-12-22] MED LIST changes: +OXYCODONE-APAP1 TAB PO
[2018-12-22 10:17] VITALS: BP 162/89
--- NOTE | 2018-12-22 10:18 | NUR ---
Pain Clinic Assessment: 1. History of Osteoarthritis: JOINTS History of Rheumatoid Arthritis: Not Applicable 2. Height: 5 ft. 8 in. 172.7 cm. Weight: 171.0 lb. oz. 77.565 kg. Patient's BMI: 26.0 3. Vital Signs: BP: 162/89 Pulse: 82 Resp: 18 Temp: 02 Sat: 97 ECG Mon: 4. Pain Intensity: 3 5. Fall Risk: Dizziness: Needs help standing or walking: Fallen in the last 3 months: Fall risk comments: 6. Patient on Blood Thinner: None 7. History of Hypertension: Y 8. Opioid Therapy greater than 6 weeks: Y Opiate Contract Signed: 08/16/15 9. Risk Assessment Tool Provided: 1 LOW RISK 10. Functional Assessment Tool: 27 11. Recreational Drug Use: Never Drug Type: Tobacco Use: Never Smoker Tobacco Type: Amount or Packs/day: How Many Years: Alcohol Use: No Frequency: Quant:
--- NOTE | 2018-12-31 08:25 | HPC ---
[facility] [address] [address] PAIN MANAGEMENT CONSULTATION Name: MILTONMICHAEL Room #: REG NINO Shabazz#: [id number] Admission: 12/22/18 Attend Phys: Narcisa Quesada MD Discharge: Date of : 60 Report #: [id number] THIS REPORT FOR: //name// CC: Alex Quesada DATE OF SERVICE: 12/22/2018 CHIEF COMPLAINT: Here for medications, having more pain in my back and down in my leg." HISTORY: The patient is a 58-year-old gentleman who has been followed in the pain clinic for a number of years. He has had some problems with cervical radicular pain. He has had surgery in the neck area. He has some problems with pain in the lower portion of his back. He has undergone epidural steroid injections and gleaned some benefit. He is having more pain on a regular basis. Pain radiates down into his posterior right thigh and leg and involves the posterior area down to the knee. He is having pain significant enough that he is considering a conversation with a surgeon. He rates his pain today as a 3/10. He has not been standing for too long. ALLERGIES: No known drug allergies. CURRENT MEDICATIONS: Oxycodone 7.5 mg 1 p.o. p.r.n., meloxicam 15 mg 1 p.o. b.i.d., trazodone 50 mg 1-2 tablets at bedtime, tizanidine 4 mg b.i.d., Crestor 10 mg, Cozaar 50 mg, gabapentin 600 mg at bedtime. PAIN CLINIC ASSESSMENT AND PQRS: 1. The patient has some osteoarthritic changes in his neck. He also has some arthritic changes in his low back area. He is not being treated for rheumatoid arthritis. 2. Height 5 feet 8 inches, weight 171 pounds, BMI is 26. 3. Blood pressure 162/89, pulse 82, respiratory rate 18, room air saturation 97%. 4. Pain intensity 05/02. 5. Fall history: The patient has not fallen in the last 3 months. 6. Blood thinner. The patient is not on a blood thinning medication. 7. Hypertension. The patient is being treated for hypertension. 8. Opioids greater than 6 weeks. The patient received medication from one source, pain clinic. 9. Risk assessment tool, low for opioid use. 10. Functional assessment tool . 11. Recreational drug use: The patient denies. 12. Tobacco: The patient has never smoked. 13. Alcohol: The patient denies frequent use of alcoholic beverages. [address] [address] PAIN MANAGEMENT CONSULTATION Name: KARINEMICHAEL Remy Room #: REG [facility]#: [id number] Admission: 12/22/18 Attend Phys: Narcisa Quesada MD Discharge: Date of : 60 Report #: [id number] PHYSICAL EXAMINATION: GENERAL: The patient is a well-developed, well-nourished white male. Appears his stated age. He is alert and oriented x 3. His affect is appropriate. Speech is fluent. HEENT: Normocephalic, atraumatic. Extraocular eye muscles intact. The patient has some limited range of motion of his neck secondary to history of surgeries. Has some pain and discomfort in the upper extremities with some weakness. HEART: Regular rate. ABDOMEN: Nontender. Bowel sounds present. EXTREMITIES: The patient has pain in the lower extremity with prolonged standing and with certain activities. Rates his muscle strength judged to be 5-/5 for the major muscle groups in the lower extremity. The patient is without significant scoliosis, kyphosis or lordosis. IMPRESSION: 1. History of lumbar radicular pain, L4-L5 and L5-S1 on the right. 2. History of cervical radiculopathy, status post anterior fusion with instrumentation. 3. Pars defect of the lumbar spine with increased pain. 4. Myofascial pain in the cervical area. 5. Hypertension. RECOMMENDATIONS: We discussed treatment options with the patient. At this juncture, he feels that his medications of hydrocodone continued to be helpful. He feels that the medications enable him and enables him to perform activities of daily living with less discomfort. It is not affecting his mentation. He is able to think clearly. Feels that the gabapentin medication is helpful as well with the nerve component of the pain that he has been experiencing. He finds that meloxicam can be helpful for the myofascial components of the pain. A script for his medications has been rewritten. We have discussed that he is aware of the possible complication with opioid medications. They can become less effective over time secondary to development of tolerance. The patient is showing no signs of addiction. We would like to thank you for letting us participate in his care. We hope he continues to improve. <ELECTRONICALLY SIGNED> By: Narcisa Quesada MD 12/31/18 0825 [id number] Narcisa Quesada MD /nt
== END ==
LOC: PAIN 07:03
DX: Z76.0 Encounter for issue of repeat prescription (principal); M54.16 Radiculopathy, lumbar region; M54.17 Radiculopathy, lumbosacral region; M54.12 Radiculopathy, cervical region; I10 Essential (primary) hypertension; Z79.891 Long term (current) use of opiate analgesic; Z79.899 Other long term (current) drug therapy

== ENCOUNTER → 2019-03-02 | Outpatient (CLI) | payer BC, OTHER ==
[~2019-03-02] VITALS: Ht 172.7 cm; Wt 76.3 kg
[2019-03-02 08:01] VITALS: BP 145/95
--- NOTE | 2019-03-02 08:05 | NUR ---
Pain Clinic Assessment: 1. History of Osteoarthritis: JOINTS History of Rheumatoid Arthritis: Not Applicable 2. Height: 5 ft. 8 in. 172.7 cm. Weight: 168.2 lb. oz. 76.295 kg. Patient's BMI: 25.6 3. Vital Signs: BP: 145/95 Pulse: 86 Resp: 18 Temp: 02 Sat: 98 ECG Mon: 4. Pain Intensity: 4 5. Fall Risk: Dizziness: N Needs help standing or walking: N Fallen in the last 3 months: N Fall risk comments: 6. Patient on Blood Thinner: None 7. History of Hypertension: Y 8. Opioid Therapy greater than 6 weeks: Y Opiate Contract Signed: 08/16/15 9. Risk Assessment Tool Provided: 1 LOW RISK 10. Functional Assessment Tool: 27 11. Recreational Drug Use: Never Drug Type: Tobacco Use: Never Smoker Tobacco Type: Amount or Packs/day: How Many Years: Alcohol Use: No Frequency: Quant:
== END | disposition home or self-care (01) ==
LOC: PAIN 06:41
DX: M54.16 Radiculopathy, lumbar region (principal); G89.29 Other chronic pain; Z79.899 Other long term (current) drug therapy

== ENCOUNTER → 2019-05-04 | Outpatient (CLI) | payer BC, OTHER ==
[~2019-05-04] VITALS: Ht 172.7 cm; Wt 75.8 kg
[2019-05-04 10:44] VITALS: BP 135/81
--- NOTE | 2019-05-04 10:48 | NUR ---
Pain Clinic Assessment: 1. History of Osteoarthritis: JOINTS History of Rheumatoid Arthritis: Not Applicable 2. Height: 5 ft. 8 in. 172.7 cm. Weight: 167.0 lb. oz. 75.751 kg. Patient's BMI: 25.4 3. Vital Signs: BP: 135/81 Pulse: 89 Resp: 18 Temp: 02 Sat: 99 ECG Mon: 4. Pain Intensity: 3 5. Fall Risk: Dizziness: N Needs help standing or walking: N Fallen in the last 3 months: N Fall risk comments: 6. Patient on Blood Thinner: None 7. History of Hypertension: Y 8. Opioid Therapy greater than 6 weeks: Y Opiate Contract Signed: 08/16/15 9. Risk Assessment Tool Provided: 1 LOW RISK 10. Functional Assessment Tool: 27 11. Recreational Drug Use: Never Drug Type: Tobacco Use: Never Smoker Tobacco Type: Amount or Packs/day: How Many Years: Alcohol Use: No Frequency: Quant:
--- NOTE | 2019-05-05 14:51 | HPC ---
[facility] [address] [place] [address] PAIN MANAGEMENT CONSULTATION Name: MICHAEL MILTON Room #: REG NINO [facility]#: [id number] Admission: 05/04/19 Attend Phys: Amber Montgomery Discharge: Date of : 60 Report #: [id number] THIS REPORT FOR: cc: Alex Rodriguez MD,Alex Montgomery,Amber RAY ~ CC: Amber Rodriguez DATE OF SERVICE: 05/04/2019 CHIEF COMPLAINT: Chronic cervical radiculopathy and low back pain with radicular symptoms. HISTORY OF PRESENT ILLNESS: This is a 59-year-old gentleman who returns to the pain clinic today for refill of his medications that he uses to help treat his ongoing neck and low back pain. He reports that the lumbar epidural steroid injection that Dr. Quesada performed in February was beneficial, helping at least 50-60% of his pain in his back. He still has some ongoing pain issues in his right leg. He reports he had at least a 4-week relief of symptoms. His pain has gradually returned. It is a dull aching, throbbing pain of 3/10 today, worse with prolonged bending, standing and walking. He feels that the medications are beneficial as well as heat and TENS unit. He is here for medication refill and then also wondering when he is able to schedule another epidural steroid injection. ALLERGIES: No known drug allergies. CURRENT LIST OF MEDICATIONS: Oxycodone 7.5/325 p.r.n., meloxicam 15 mg daily, gabapentin 600 mg at bedtime, ibuprofen, trazodone, Crestor, and Cozaar. PQRS: 1. He has osteoarthritis in multiple joints. He denies any rheumatoid arthritis. 2. Height is 5 feet 8 inches, weight is 167, BMI is 25. 3. Vital signs 135/81, pulse is 89, respirations 18, oxygen sat is 99. 4. Pain score is 3/10. Fall risk. Denies dizziness, does not need help walking or standing, has not fallen in the last 3 months. The patient is not on any blood thinners, but does take medicine for hypertension. Opioid therapy is greater than 6 weeks; therefore, an opioid signed contract is on the chart. Risk assessment is low. Functional assessment is 27/70. 5. Recreational drug use, he denies. He is not a smoker and does not drink alcohol. According to the prescription monitoring system, the patient is filling appropriately for his medications in a timely fashion. According to the [address] [address] PAIN MANAGEMENT CONSULTATION Name: MICHAEL MILTON Room #: REG [facility] M.R.#: [id number] Admission: 05/04/19 Attend Phys: Amber Montgomery Discharge: Date of : 60 Report #: [id number] guidelines, his morphine mEq per day is 56 per day. PHYSICAL EXAMINATION: GENERAL: This is alert and orientated 59-year-old gentleman who appears his stated age. His affect is appropriate. He places his pain score today at 3/10. HEENT: Normocephalic, atraumatic. Extraocular eye muscles are intact. MUSCULOSKELETAL: He has some limited range of motion in his neck secondary to multiple surgeries. EXTREMITIES: Pain is in the lumbosacral region that radiates down his right leg following the L4-L5, L5-S1 distribution. Muscle strength judged to be 5/5 for all major muscle groups with good sensation from L1-S2. The patient is without significant scoliosis, kyphosis or lordosis. Walks with a normal gait. IMPRESSION: 1. History of lumbar radiculopathy on L4-L5 and L5-S1 on the right. 2. Cervical radiculopathy, status post anterior fusion with instrumentation. 3. Pars defect of the lumbar spine. 4. Myofascial pain in the cervical area. 5. Hypertension. Plan: 1.We discussed treatment options with the patient today. The patient finds the medications and periodic epidurals very beneficial. His last epidural afforded him 50-60% relief for greater than 1 month. He would like to schedule another injection within the next 3 weeks. We will do that prior to discharge today. 2. Dr. Quesada was here for part of the discussion today. We will refill his oxycodone 7.5/325, #150 for today 4 and 8-week supply as well as gabapentin 600 mg at bedtime with 5 additional refills. This will be sent electronically. 3. The patient denies any problems with constipation or daytime sleepiness as a result of his medications. The patient is seen today in collaboration with Dr. Edison Quesada who was present for part of the discussion. <ELECTRONICALLY SIGNED> By: Amber Montgomery 05/05/19 1451 [id number] [id number] Amber Montgomery /leoncio
== END ==
LOC: PAIN 06:41
DX: M54.12 Radiculopathy, cervical region (principal); R51 Headache; I10 Essential (primary) hypertension; M54.5 Low back pain; Z79.891 Long term (current) use of opiate analgesic; Z79.01 Long term (current) use of anticoagulants; Z79.899 Other long term (current) drug therapy; Z87.898 Personal history of other specified conditions

== ENCOUNTER → 2019-07-13 | Outpatient (CLI) | payer BC, OTHER ==
[~2019-07-13] VITALS: Ht 172.7 cm; Wt 77.7 kg
[2019-07-13 09:04] VITALS: BP 121/79
--- NOTE | 2019-07-13 09:15 | NUR ---
Pain Clinic Assessment: 1. History of Osteoarthritis: SPINAL History of Rheumatoid Arthritis: Not Applicable 2. Height: 5 ft. 8 in. 172.7 cm. Weight: 171.2 lb. oz. 77.656 kg. Patient's BMI: 26.0 3. Vital Signs: BP: 121/79 Pulse: 80 Resp: 14 Temp: 02 Sat: 100 ECG Mon: 4. Pain Intensity: 4 5. Fall Risk: Dizziness: N Needs help standing or walking: N Fallen in the last 3 months: N Fall risk comments: 6. Patient on Blood Thinner: None 7. History of Hypertension: Y 8. Opioid Therapy greater than 6 weeks: Y Opiate Contract Signed: 08/16/15 9. Risk Assessment Tool Provided: 1 LOW RISK 10. Functional Assessment Tool: 11. Recreational Drug Use: Never Drug Type: Tobacco Use: Never Smoker Tobacco Type: Amount or Packs/day: How Many Years: Alcohol Use: Yes Frequency: Monthly Quant: 1
--- NOTE | 2019-07-13 11:42 | HPC ---
[facility] [address] [place] [address] PAIN MANAGEMENT CONSULTATION Name: MICHAEL MILTON Room #: REG [facility] Mele#: [id number] Admission: 07/13/19 Attend Phys: Amber Montgomery Discharge: Date of : 60 Report #: [id number] THIS REPORT FOR: cc: Alex Rodriguez MD, John M. MD Hocker, Amanda CNS ~ CC: Alejandra Quesada MD DATE OF SERVICE: 07/13/2019 CHIEF COMPLAINT: Chronic cervical radiculopathy and low back pain. HISTORY OF PRESENT ILLNESS: This is a 59-year-old gentleman who returns to the pain clinic today for refill of his opioid medications that he uses to help treat his ongoing neck pain and low back pain. Today, he is reporting a pain score of 4/10, mostly located in his lower back that is radiating down his right leg to his foot. He reports it to be a dull aching, throbbing pain with some numbness, feels that it is worse with prolonged walking, standing, lifting. He feels that the medication as well as heat and a TENS unit are beneficial. He does report that he recently restarted work this past week due to being off for the coronavirus. He notices an increase in pain during that time. He would like to have another epidural steroid injection that he feels that he will wait a little bit longer due to some risk factors that he does have and he knows that the steroids do decrease his immune system. He will call when he feels that he is ready to have an epidural injection in his lower back from Dr. Quesada. ALLERGIES: No known drug allergies. CURRENT LIST OF MEDICATIONS: Oxycodone 7.5/325 as needed, meloxicam 15 mg, gabapentin 600 mg, ibuprofen, trazodone, Crestor, and Cozaar. PQRS: 1. He has osteoarthritis in multiple joints and spine. Denies any rheumatoid arthritis. 2. Height is 5 feet 8 inches, weight is 171, BMI is 26. Vital signs: Blood pressure 121/79, pulse is 80, respirations 14, oxygen sat is 100, pain score is 4/10. Fall risk. Denies dizziness, does not need help walking or standing, has not fallen in the last 3 months. The patient is not on any blood thinners, but does take medicine for hypertension. Opioid therapy is greater than 6 weeks; therefore, an opioid signed contract is on the chart. Risk assessment is low. Functional assessment is 27/70. 3. Recreational drug use, denies. Not a smoker and occasionally drinks alcohol. According to the prescription monitoring system, the patient is filling appropriately for his medications in a timely fashion. He is due to fill those [address] [address] PAIN MANAGEMENT CONSULTATION Name: MILTONMICHAEL Room #: REG [facility] Mele#: [id number] Admission: 07/13/19 Attend Phys: Amber Montgomery Discharge: Date of : 60 Report #: [id number] medications this weekend. According to the CDC guidelines, his morphine milliequivalent is 75 MMEs per day. PHYSICAL EXAMINATION: GENERAL: This is a well-developed, well-nourished 59-year-old gentleman who appears his stated age, placing his current pain score at 04/10 today. His affect is appropriate and his speech is fluent. HEENT: Normocephalic, atraumatic. Extraocular eye muscles are intact. He is wearing a mask. MUSCULOSKELETAL: He has limited range of motion in his cervical spine due to multiple surgeries. EXTREMITIES: Pain and tenderness in his lumbar region that radiates down his L4-L5 and L5-S1 dermatomal distribution to his foot on his right leg. His muscle strength judged to be 5/5 in all major muscle groups with good sensation from L1-S2. He is without significant scoliosis, kyphosis or lordosis. IMPRESSION: 1. Lumbar radiculopathy in the L4-L5 and L5-S1 on the right. 2. Cervical radiculopathy post anterior fusion with instrumentation. 3. Pars defect of the lumbar spine. 4. Hypertension. 5. Complex medical management under terms of written opioid agreement. PLAN: 1. We discussed treatment options with the patient today. The patient finds his medication beneficial as well as periodic epidurals. He would like to have an epidural, but is going to wait due to the COVID-19 outbreak. He feels that he has a few comorbidities that would increase his risk. He will call for an appointment for a lumbar epidural steroid injection from Dr. Quseada in the near future. His last injection was in February, which he had good relief from that epidural. 2. We will refill his oxycodone 7.5/325, #150 for 3 months. These will be sent electronically to his [facility] pharmacy. 3. The patient is not needing meloxicam or gabapentin at this time. He has plenty of refills. 4. The patient is seen in collaboration with Dr. Edison Quesada. <ELECTRONICALLY SIGNED> By: Amber Montgomery 07/13/19 [id number] Amber Montgomery /[email or web address]
== END ==
LOC: PAIN 06:58
DX: M54.12 Radiculopathy, cervical region (principal); I10 Essential (primary) hypertension; Z79.891 Long term (current) use of opiate analgesic

== ENCOUNTER → 2019-09-16 | Outpatient (CLI) | payer BC, OTHER ==
[~2019-09-16] VITALS: Ht 172.7 cm; Wt 75.3 kg
[2019-09-16 07:53] VITALS: BP 145/93
--- NOTE | 2019-09-16 07:58 | NUR ---
Pain Clinic Assessment: 1. History of Osteoarthritis: SPINAL History of Rheumatoid Arthritis: Not Applicable 2. Height: 5 ft. 8 in. 172.7 cm. Weight: 166.0 lb. oz. 75.297 kg. Patient's BMI: 25.2 3. Vital Signs: BP: 145/93 Pulse: 99 Resp: 16 Temp: 02 Sat: 100 ECG Mon: 4. Pain Intensity: 3 5. Fall Risk: Dizziness: N Needs help standing or walking: N Fallen in the last 3 months: N Fall risk comments: 6. Patient on Blood Thinner: None 7. History of Hypertension: Y 8. Opioid Therapy greater than 6 weeks: Y Opiate Contract Signed: 08/16/15 9. Risk Assessment Tool Provided: 1 LOW RISK 10. Functional Assessment Tool: 11. Recreational Drug Use: Never Drug Type: Tobacco Use: Never Smoker Tobacco Type: Amount or Packs/day: How Many Years: Alcohol Use: Yes Frequency: Special Occasions Quant: 1-2
== END | disposition home or self-care (01) ==
LOC: PAIN 06:35
PROVIDERS: ATTEND Anesthesiology Pain Medicine
DX: M54.16 Radiculopathy, lumbar region (principal); G89.29 Other chronic pain; Z98.890 Other specified postprocedural states; Z79.899 Other long term (current) drug therapy

== ENCOUNTER → 2019-11-30 | Outpatient (CLI) | payer BC, OTHER ==
[~2019-11-30] VITALS: Ht 172.7 cm; Wt 74.2 kg
[~2019-11-30] MED LIST changes: +PERCOCET 7.5-31 EAC1 PO
[2019-11-30 10:41] VITALS: BP 135/71
--- NOTE | 2019-11-30 10:55 | NUR ---
Pain Clinic Assessment: 1. History of Osteoarthritis: SPINAL History of Rheumatoid Arthritis: Not Applicable 2. Height: 5 ft. 8 in. 172.7 cm. Weight: 163.6 lb. oz. 74.208 kg. Patient's BMI: 24.9 3. Vital Signs: BP: 135/71 Pulse: 80 Resp: 16 Temp: 02 Sat: 98 ECG Mon: 4. Pain Intensity: 5 5. Fall Risk: Dizziness: N Needs help standing or walking: N Fallen in the last 3 months: N Fall risk comments: 6. Patient on Blood Thinner: None 7. History of Hypertension: Y 8. Opioid Therapy greater than 6 weeks: Y Opiate Contract Signed: 08/16/15 9. Risk Assessment Tool Provided: 1 LOW RISK 10. Functional Assessment Tool: 11. Recreational Drug Use: Never Drug Type: Tobacco Use: Never Smoker Tobacco Type: Amount or Packs/day: How Many Years: Alcohol Use: Yes Frequency: Quant: ONCE A MONTH
== END | disposition home or self-care (01) ==
LOC: PAIN 06:38
PROVIDERS: ATTEND Anesthesiology Pain Medicine
DX: M54.16 Radiculopathy, lumbar region (principal); G89.29 Other chronic pain; Z79.899 Other long term (current) drug therapy; Z98.890 Other specified postprocedural states

== ENCOUNTER → 2020-02-08 | Outpatient (CLI) | payer BC, OTHER ==
[~2020-02-08] VITALS: Ht 172.7 cm; Wt 75.2 kg
[2020-02-08 10:30] VITALS: BP 132/77
--- NOTE | 2020-02-08 10:41 | NUR ---
Pain Clinic Assessment: 1. History of Osteoarthritis: SPINAL History of Rheumatoid Arthritis: Not Applicable 2. Height: 5 ft. 8 in. 172.7 cm. Weight: 165.8 lb. oz. 75.206 kg. Patient's BMI: 25.2 3. Vital Signs: BP: 132/77 Pulse: 86 Resp: 16 Temp: 02 Sat: 99 ECG Mon: 4. Pain Intensity: 3 5. Fall Risk: Dizziness: N Needs help standing or walking: N Fallen in the last 3 months: N Fall risk comments: 6. Patient on Blood Thinner: None 7. History of Hypertension: Y 8. Opioid Therapy greater than 6 weeks: Y Opiate Contract Signed: 08/16/15 9. Risk Assessment Tool Provided: 1 LOW RISK 10. Functional Assessment Tool: 11. Recreational Drug Use: Never Drug Type: Tobacco Use: Never Smoker Tobacco Type: Amount or Packs/day: How Many Years: Alcohol Use: Yes Frequency: Monthly Quant: 1
== END | disposition home or self-care (01) ==
LOC: PAIN 06:55
PROVIDERS: ATTEND Anesthesiology Pain Medicine
DX: M54.16 Radiculopathy, lumbar region (principal); G89.29 Other chronic pain; I10 Essential (primary) hypertension; Z98.890 Other specified postprocedural states; Z79.899 Other long term (current) drug therapy

== ENCOUNTER → 2020-04-18 | Outpatient (CLI) | payer BC, OTHER ==
[~2020-04-18] VITALS: Ht 172.7 cm; Wt 76.2 kg
[~2020-04-18] MED LIST changes: +AMITRIPTYLINE H25 M2 PO
[2020-04-18 08:10] VITALS: BP 142/83
--- NOTE | 2020-04-18 08:19 | NUR ---
Pain Clinic Assessment: 1. History of Osteoarthritis: SPINE History of Rheumatoid Arthritis: Not Applicable 2. Height: 5 ft. 8 in. 172.7 cm. Weight: 168.0 lb. oz. 76.204 kg. Patient's BMI: 25.6 3. Vital Signs: BP: 142/83 Pulse: 78 Resp: 16 Temp: 02 Sat: 98 ECG Mon: 4. Pain Intensity: 4 5. Fall Risk: Dizziness: N Needs help standing or walking: N Fallen in the last 3 months: N Fall risk comments: 6. Patient on Blood Thinner: None 7. History of Hypertension: Y 8. Opioid Therapy greater than 6 weeks: Y Opiate Contract Signed: 08/16/15 9. Risk Assessment Tool Provided: 1 LOW RISK 10. Functional Assessment Tool: 11. Recreational Drug Use: Never Drug Type: Tobacco Use: Never Smoker Tobacco Type: Amount or Packs/day: How Many Years: Alcohol Use: Yes Frequency: Monthly Quant: 1
== END | disposition home or self-care (01) ==
LOC: PAIN 06:44
PROVIDERS: ATTEND Anesthesiology Pain Medicine
DX: M54.16 Radiculopathy, lumbar region (principal); M54.12 Radiculopathy, cervical region; G89.29 Other chronic pain; I10 Essential (primary) hypertension; Z98.890 Other specified postprocedural states; Z79.899 Other long term (current) drug therapy; Z79.891 Long term (current) use of opiate analgesic

== ENCOUNTER → 2020-06-27 | Outpatient (CLI) | payer BC, OTHER ==
[~2020-06-27] VITALS: Ht 170.2 cm; Wt 78.3 kg
[2020-06-27 14:22] VITALS: BP 128/80
--- NOTE | 2020-06-27 14:24 | NUR ---
Pain Clinic Assessment: 1. History of Osteoarthritis: SPINE History of Rheumatoid Arthritis: Not Applicable 2. Height: 5 ft. 7 in. 170.2 cm. Weight: 172.6 lb. oz. 78.291 kg. Patient's BMI: 27.0 3. Vital Signs: BP: 128/80 Pulse: 91 Resp: 16 Temp: 02 Sat: 98 ECG Mon: 4. Pain Intensity: 4 5. Fall Risk: Dizziness: N Needs help standing or walking: N Fallen in the last 3 months: N Fall risk comments: 6. Patient on Blood Thinner: None 7. History of Hypertension: Y 8. Opioid Therapy greater than 6 weeks: Y Opiate Contract Signed: 08/16/15 9. Risk Assessment Tool Provided: 1 LOW RISK 10. Functional Assessment Tool: 11. Recreational Drug Use: Never Drug Type: Tobacco Use: Never Smoker Tobacco Type: Amount or Packs/day: How Many Years: Alcohol Use: Yes Frequency: Special Occasions Quant:
== END | disposition home or self-care (01) ==
LOC: PAIN 10:35
PROVIDERS: ATTEND Anesthesiology Pain Medicine
DX: M54.16 Radiculopathy, lumbar region (principal); G89.29 Other chronic pain; I10 Essential (primary) hypertension; Z98.890 Other specified postprocedural states; Z79.899 Other long term (current) drug therapy

== ENCOUNTER → 2020-09-07 | Outpatient (CLI) | payer BC, OTHER ==
[~2020-09-07] VITALS: Ht 172.7 cm; Wt 77.0 kg
[~2020-09-07] MED LIST changes: +AMITRIPTYLINE H25 M4 PO
[2020-09-07 10:14] VITALS: BP 137/70
--- NOTE | 2020-09-07 10:23 | NUR ---
Pain Clinic Assessment: 1. History of Osteoarthritis: SPINE History of Rheumatoid Arthritis: Not Applicable 2. Height: 5 ft. 8 in. 172.7 cm. Weight: 169.8 lb. oz. 77.021 kg. Patient's BMI: 25.8 3. Vital Signs: BP: 137/70 Pulse: 111 Resp: 18 Temp: 02 Sat: 96 ECG Mon: 4. Pain Intensity: 3 5. Fall Risk: Dizziness: N Needs help standing or walking: N Fallen in the last 3 months: N Fall risk comments: 6. Patient on Blood Thinner: None 7. History of Hypertension: Y 8. Opioid Therapy greater than 6 weeks: Y Opiate Contract Signed: 08/16/15 9. Risk Assessment Tool Provided: 1 LOW RISK 10. Functional Assessment Tool: 11. Recreational Drug Use: Never Drug Type: Tobacco Use: Never Smoker Tobacco Type: Amount or Packs/day: How Many Years: Alcohol Use: Yes Frequency: Quant:
== END ==
LOC: PAIN 07:14
PROVIDERS: ATTEND Anesthesiology Pain Medicine
DX: M54.16 Radiculopathy, lumbar region (principal); M54.12 Radiculopathy, cervical region; I10 Essential (primary) hypertension

== ENCOUNTER → 2020-11-07 | Outpatient (CLI) | payer BC, OTHER ==
[~2020-11-07] VITALS: Ht 172.7 cm; Wt 75.6 kg
[2020-11-07 10:28] VITALS: BP 130/80
== END | disposition home or self-care (01) ==
LOC: PAIN 09:53
PROVIDERS: ATTEND Anesthesiology Pain Medicine
DX: M54.16 Radiculopathy, lumbar region (principal); G89.29 Other chronic pain; Z98.890 Other specified postprocedural states; Z79.899 Other long term (current) drug therapy

== ENCOUNTER → 2021-01-23 | Outpatient (CLI) | payer BC, OTHER ==
[~2021-01-23] VITALS: Ht 172.7 cm; Wt 76.9 kg
[~2021-01-23] MED LIST changes: +CYMBALTA20 MG PO
[2021-01-23 12:59] VITALS: BP 148/84
--- NOTE | 2021-01-23 13:08 | NUR ---
Pain Clinic Assessment: 1. History of Osteoarthritis: SPINE History of Rheumatoid Arthritis: Not Applicable 2. Height: 5 ft. 8 in. 172.7 cm. Weight: 169.6 lb. oz. 76.930 kg. Patient's BMI: 25.8 3. Vital Signs: BP: 148/84 Pulse: 99 Resp: 20 Temp: 02 Sat: 98 ECG Mon: 4. Pain Intensity: BACK 2 SHOULDER 4 5. Fall Risk: Dizziness: N Needs help standing or walking: N Fallen in the last 3 months: Y Fall risk comments: 6. Patient on Blood Thinner: None 7. History of Hypertension: Y 8. Opioid Therapy greater than 6 weeks: Y Opiate Contract Signed: 08/16/15 9. Risk Assessment Tool Provided: 1 LOW RISK 10. Functional Assessment Tool: 11. Recreational Drug Use: Never Drug Type: Tobacco Use: Never Smoker Tobacco Type: Amount or Packs/day: How Many Years: Alcohol Use: Yes Frequency: Quant:
== END ==
LOC: PAIN 10:51
PROVIDERS: ATTEND Anesthesiology Pain Medicine
DX: M25.511 Pain in right shoulder (principal); M54.31 Sciatica, right side; Z79.899 Other long term (current) drug therapy

== ENCOUNTER → 2021-04-10 | Outpatient (CLI) | payer BC, OTHER ==
[~2021-04-10] VITALS: Ht 170.2 cm; Wt 78.4 kg
[2021-04-10 08:19] VITALS: BP 130/88
--- NOTE | 2021-04-10 08:22 | NUR ---
Pain Clinic Assessment: 1. History of Osteoarthritis: SPINE History of Rheumatoid Arthritis: Not Applicable 2. Height: 5 ft. 7 in. 170.2 cm. Weight: 172.8 lb. oz. 78.382 kg. Patient's BMI: 27.1 3. Vital Signs: BP: 130/88 Pulse: 82 Resp: 16 Temp: 02 Sat: 98 ECG Mon: 4. Pain Intensity: BACK 2 SHOULDER 4 5. Fall Risk: Dizziness: N Needs help standing or walking: N Fallen in the last 3 months: N Fall risk comments: 6. Patient on Blood Thinner: None 7. History of Hypertension: Y 8. Opioid Therapy greater than 6 weeks: Y Opiate Contract Signed: 08/16/15 9. Risk Assessment Tool Provided: 1 LOW RISK 10. Functional Assessment Tool: 11. Recreational Drug Use: Never Drug Type: Tobacco Use: Never Smoker Tobacco Type: Amount or Packs/day: How Many Years: Alcohol Use: Yes Frequency: Quant:
== END ==
LOC: PAIN 06:50
PROVIDERS: ATTEND Anesthesiology Pain Medicine
DX: I10 Essential (primary) hypertension (principal); M54.16 Radiculopathy, lumbar region; M54.2 Cervicalgia; M79.10 Myalgia, unspecified site; M54.12 Radiculopathy, cervical region; M47.26 Other spondylosis with radiculopathy, lumbar region; Z79.899 Other long term (current) drug therapy